=== PATIENT | female | born 1945 | race Caucasian/White ===

== ENCOUNTER 2019-06-16 10:30 | Emergency (ER) | payer MEDICARE, BC ==
[2019-06-16 10:59] LABS: ABSOLUTE EOSINOPHILS # (AUTO) 0.2 10^3/uL (0.0-0.6); ABSOLUTE LYMPHOCYTES (AUTO) 1.3 10^3/uL (0.5-4.7); ABSOLUTE MONOCYTES (AUTO) 0.3 10^3/uL (0.1-1.4); ABSOLUTE NEUT (AUTO) 3.6 10^3/uL (1.7-8.2); BASOPHILS % (AUTO) 0.6 % (0-2); EOSINOPHILS % (AUTO) 3.2 % (0-6); HEMATOCRIT 39.6 % (36.0-47.0); HEMOGLOBIN 13.2 g/dL (12.0-15.5); LYMPHOCYTES % (AUTO) 24.1 % (13-45); MEAN CORPUSCULAR HEMOGLOBIN 31.1 pg (27.0-33.4); MEAN CORPUSCULAR HGB CONC 33.3 g/dL (32.0-36.0); MEAN CORPUSCULAR VOLUME 93 fl (80-97); MONOCYTES % (AUTO) 5.3 % (3-13); PLATELET COUNT 185 10^3/uL (150-450); RED BLOOD COUNT 4.24 10^6/uL (3.72-5.28); SEGMENTED NEUTROPHILS % (AUTO) 66.8 % (42-78); TOTAL CELLS COUNTED % (AUTO) 100 %; WHITE BLOOD COUNT 5.3 10^3/uL (4.0-10.5)
[2019-06-16 11:15] LABS: ALKALINE PHOSPHATASE 60 U/L (38-126); ANION GAP 8 (5-19); ASPARTATE AMINO TRANSFERASE 17 U/L (14-36); BILIRUBIN,DIRECT 0.1 mg/dL (0.0-0.4); BILIRUBIN,TOTAL 0.4 mg/dL (0.2-1.3); BLOOD UREA NITROGEN 19 mg/dL (7-20); CALCIUM 8.1 mg/dL (8.4-10.2); CARBON DIOXIDE 21 mmol/L (22-30); CHLORIDE 115 mmol/L (98-107); GLUCOSE 137 mg/dL (75-110); POTASSIUM 3.2 mmol/L (3.6-5.0); TOTAL PROTEIN 5.3 g/dL (6.3-8.2)
[2019-06-16] MEDS ORDERED: DIPH/PERTUSS(ACELL)/TETANUS VAC/PF 0.5 ML SYR (>=10YO) IM ONE ×2 (11:17→13:29)
--- NOTE | 2019-06-16 11:17 | ER Document Report ---
ED Medical Screen (RME) - General Stated Complaint: LEG LACERATION Time Seen by Provider: 06/16/19 11:14 Primary Care Provider: SPEEDY MINER [Primary Care Provider] - Follow up as needed Information source: Patient Notes: Patient was shaving in the shower and nicked a varicose vein. Patient reports a large amount of bleeding in the shower. Patient initially felt lightheaded and had a low blood pressure per EMS. Patient reports feeling much better at this time. No active bleeding to the right ankle. Patient denies taking any anticoagulants. I have greeted and performed a rapid initial assessment of this patient. A comprehensive ED assessment and evaluation of the patient, analysis of test results and completion of the medical decision making process will be conducted by additional ED providers. TRAVEL OUTSIDE OF THE [place] IN LAST 30 DAYS: No Past Medical History - Social History Chew tobacco use (# tins/day): No Drug Abuse: None Physical Exam - General General appearance: Appears well, Alert Notes: Small laceration to right medial ankle, no active bleeding Course - Laboratory Result Diagrams: 06/16/19 10:45 06/16/19 10:45 Laboratory results interpreted by me: 06/16/19 10:45 Potassium 3.2 L Chloride 115 H Carbon Dioxide 21 L Est GFR (MDRD) Non-Af 58 L Glucose 137 H Calcium 8.1 L Total Protein 5.3 L Albumin 3.0 L Doctor's Discharge - Discharge Referrals: SPEEDY MINER [Primary Care Provider] - Follow up as needed
[2019-06-16] MEDS ORDERED: LIDOCAINE 2%/EPINEPHRINE INJ 20 ML VIAL ONE (11:21)
--- NOTE | 2019-06-16 13:18 | ER Document Report ---
ED Extremity Problem, Lower - General Stated Complaint: LEG LACERATION Time Seen by Provider: 06/16/19 11:14 Primary Care Provider: SPEEDY MINER [NO LOCAL MD] - Follow up as needed Mode of Arrival: Medic Information source: Patient TRAVEL OUTSIDE OF THE [place] IN LAST 30 DAYS: No - HPI Notes: Patient presents with a right lower extremity laceration. She states that while shaving she noticed that she cut her skin and it would not stop bleeding. She felt lightheaded and dizzy from the bleeding. She called the ambulance. Ambulance states they initially found her with a pressure of 70 systolic. And patient appeared pale. They said there was 6 to 700 mL of blood on the floor in the bathroom. Patient states she did feel weak and lightheaded. She states that she now feels better upon arrival here. Paramedics state they were able to get the bleeding to stop with a pressure dressing. Symptoms were moderate to severe. They were constant. They are made worse by standing better by lying down. There is no known radiation of the symptoms. Past Medical History - General Information source: Patient - Social History Smoking Status: Never Smoker Chew tobacco use (# tins/day): No Frequency of alcohol use: None Drug Abuse: None Family History: Reviewed & Not Pertinent Patient has suicidal ideation: No Patient has homicidal ideation: No Review of Systems - Review of Systems Constitutional: denies: Chills, Fever EENT: denies: Nose congestion, Nose discharge Cardiovascular: denies: Chest pain, Palpitations Respiratory: denies: Cough, Short of breath -: Yes All other systems reviewed and negative Physical Exam - Vital signs Vitals: Temp Pulse Resp BP Pulse Ox 97.7 F 66 16 146/67 H 100 06/16/19 11:05 06/16/19 11:05 06/16/19 11:05 06/16/19 11:05 06/16/19 11:05 Interpretation: Normal - General General appearance: Appears well, Alert - HEENT Head: Normocephalic, Atraumatic Eyes: Normal Pupils: PERRL - Respiratory Respiratory status: No respiratory distress Chest status: Nontender Breath sounds: Normal Chest palpation: Normal - Cardiovascular Rhythm: Regular Heart sounds: Normal auscultation Murmur: No - Abdominal Inspection: Normal Distension: No distension Bowel sounds: Normal Tenderness: Nontender Organomegaly: No organomegaly - Back Back: Normal, Nontender - Extremities General upper extremity: Normal inspection, Nontender, Normal color, Normal ROM, Normal temperature General lower extremity: Nontender, Normal color, Normal ROM, Normal temperature, Other - Right lower extremity has a small quarter centimeter lac eration with some active oozing of blood. This area is not tender. There is no evidence of foreign body. - Neurological Neuro grossly intact: Yes Cognition: Normal Orientation: AAOx4 [place] Coma Scale Eye Opening: Spontaneous [place] Coma Scale Verbal: Oriented [place] Coma Scale Motor: Obeys Commands [place] Coma Scale Total: 15 Speech: Normal Motor strength normal: LUE, RUE, LLE, RLE Sensory: Normal - Psychological Associated symptoms: Normal affect, Normal mood - Skin Skin Temperature: Warm Skin Moisture: Dry Skin Color: Normal Course - Vital Signs Vital signs: Temp Pulse Resp BP Pulse Ox 97.7 F 66 16 146/67 H 100 06/16/19 11:05 06/16/19 11:05 06/16/19 11:05 06/16/19 11:05 06/16/19 11:05 - Laboratory Result Diagrams: 06/16/19 10:45 06/16/19 10:45 Laboratory results interpreted by me: 06/16/19 10:45 Potassium 3.2 L Chloride 115 H Carbon Dioxide 21 L Est GFR (MDRD) Non-Af 58 L Glucose 137 H Calcium 8.1 L Total Protein 5.3 L Albumin 3.0 L Procedures - Laceration/Wound Repair Right Lower Leg Time completed: 13:15 Wound length (cm): 0.2 Wound's Depth, Shape: Linear Laceration pre-procedure: Sterile drapes applied Anesthetic type: 1% Lidocaine w/epi Volume Anesthetic (mLs): 3 Wound explored: Clean Wound Repaired With: Sutures Suture Size/Type: 3:0, Prolene Number of Sutures: 2 Layer Closure?: No Post-procedure wound care: Sterile dressing applied Post-procedure NV exam normal: Yes Complications: No Discharge - Discharge Clinical Impression: Laceration of right lower leg Qualifiers: Encounter type: initial encounter Qualified Code(s): S81.811A - Laceration without foreign body, right lower leg, initial encounter Condition: Stable Disposition: HOME, SELF-CARE Instructions: Laceration Care ([facility]), Tetanus Immunization Given ([facility]) Additional Instructions: Please have wound reevaluated in 5 to 7 days for possible suture removal Referrals: LOCALMD,NO [NO LOCAL MD] - Follow up as needed
[2019-06-16 13:48] VITALS: BP 126/68
== END 2019-06-16 13:48 | disposition home or self-care (01) ==
LOC: ER 10:30
DX: S81.811A Laceration without foreign body, right lower leg, initial encounter (principal); W26.8XXA Contact with other sharp object(s), not elsewhere classified, initial encounter; Y93.E8 Activity, other personal hygiene; R42 Dizziness and giddiness
CPT/HCPCS: 86900; 86901; 36415; 86850; 85025; 80053; 90715; 12001; J3490; 90471; 99283